=== PATIENT | female | born 1945 | race Caucasian/White ===

== ENCOUNTER 2021-09-08 00:36 | Inpatient (IN) | payer MEDICARE, MEDICAID ==
[2021-09-08 01:23] LABS: Hemoglobin 12.5 g/dL (12.0-16.0); Mean Corpuscular HGB CONC 34.6 g/dL (32.0-36.0); Mean Corpuscular Hemoglobin 35.3 pg (27.0-31.0); Mean Platelet Volume 7.2 fL (7.4-10.4); Platelet Count 365 thou/uL (130-400); RBC Distribution Width 13.2 % (11.5-14.5); Red Blood Cell (RBC) Count 3.55 mill/uL (4.20-5.40); White Blood Cell (WBC) Count 13.7 thou/uL (4.8-10.8)
[2021-09-08 01:34] LABS: #Basophils 0.1 thou/uL (0.0-0.2); #Eosinphils 0.8 thou/uL (0.0-0.7); #Lymphocytes 2.3 thou/uL (1.20-3.40); #Monocytes 0.8 thou/uL (0.11-0.59); #Neutrophils 9.8 thou/uL (1.40-6.50); %Basophils 0.5 % (0.0-1.0); %Lymphocytes 16.9 % (21.0-51.0); %Monocytes 5.5 % (0.0-10.0); %Neutrophils 71.1 % (42.0-75.0)
[2021-09-08 01:40] LABS: ALT (SGPT) 23 U/L (8-55); AST (SGOT) 38 U/L (5-34); Albumin 3.4 g/dL (3.4-4.8); Alkaline Phosphatase 114 U/L (40-110); Anion Gap 12 mmol/L (10-20); BUN (Urea Nitrogen) 19 mg/dL (9.8-20.1); Bilirubin, Total 0.6 mg/dL (0.2-1.2); Calc. Creatinine Clearance 0 mL/min (70-130); Calcium 8.4 mg/dL (7.8-10.44); Carbon Dioxide 27 mmol/L (23-31); Chloride 101 mmol/L (98-107); Globulin 4.1 g/dL (2.4-3.5); Glucose 142 mg/dL (83-110); Potassium 4.1 mmol/L (3.5-5.1); Protein, Total 7.5 g/dL (5.8-8.1); Sodium 136 mmol/L (136-145)
[2021-09-08] MEDS ORDERED: Morphine 2 MG/ML VIAL SLOW IVP PRN (02:08)
[2021-09-08] MEDS ORDERED: Promethazine HCl 25 MG/ML VIAL IM PRN (02:08)
[2021-09-08] MEDS ORDERED: hydrALAZINE 20 MG/ML VIAL SLOW IVP PRN (02:08)
[2021-09-08] MEDS ORDERED: Ondansetron PF 4 MG/2 ML Vial IVP PRN (02:08)
[2021-09-08] MEDS ORDERED: traMADol HCl 50 MG TAB PO PRN ×3 (02:08→03:26)
[2021-09-08] MEDS ORDERED: Acetaminophen 325 MG TAB PO PRN (02:08)
[2021-09-08] MEDS ORDERED: Cyclobenzaprine 10 MG TAB PO PRN (02:13)
[2021-09-08] MEDS ORDERED: Ibuprofen 600 MG TAB PO SCH (02:15)
[2021-09-08] MEDS ORDERED: Acetaminophen 325 MG TAB PO SCH (02:16)
[2021-09-08] MEDS ORDERED: Ondansetron PF 4 MG/2 ML Vial ONE ×2 (02:19→13:42)
[2021-09-08] MEDS ORDERED: Morphine 4 MG/ML VIAL ONE (02:19)
[2021-09-08] MEDS ORDERED: Morphine 4 MG/ML VIAL SLOW IVP PRN ×2 (02:37→13:25)
[2021-09-08 03:01] LABS: INR-International Normal Ratio 1.2; PTT 28.7 sec (22.9-36.1); Prothrombin Time 15.4 sec (12.0-14.7)
[2021-09-08 03:49] VITALS: BMI 30.5
[2021-09-08] MEDS: Sodium Chloride 0.9% 1,000 ML IV SCH ×3 (03:59→17:11)
[2021-09-08] MEDS ORDERED: traMADol HCl 50 MG TAB PO SCH (06:00)
[2021-09-08 06:02] LABS: SARS-CoV-2 NAA Rapid Test Not Detected (NotDetected)
[2021-09-08] MEDS ORDERED: CEFAZOLIN 2 GM, IV Admixture Fee-Chemo 1 UNITS in Sodium Chloride 0.9% 100 ML IVPB SCH (08:00)
[2021-09-08] MEDS: Famotidine 20 MG TAB PO SCH (08:13)
[2021-09-08] MEDS ORDERED: Acetaminophen 500 MG TAB PO SCH (09:00)
[2021-09-08] MEDS ORDERED: Dextrose 5% in Water 1,000 ML IV PRN (13:22)
[2021-09-08] MEDS ORDERED: Dextrose 50% Abboject 50 ML SYRINGE SLOW IVP PRN (13:22)
[2021-09-08] MEDS ORDERED: Polyethylene Glycol OPTH DROP 15 ML BOT EA EYE PRN (13:24)
[2021-09-08] MEDS ORDERED: Fentanyl 100 MCG/2 ML VIAL ONE (13:31)
[2021-09-08] MEDS ORDERED: Dexmedetomidine 200 MCG/2 ML VIAL ONE (13:34)
[2021-09-08] MEDS ORDERED: ceFAZolin (BATCH) 2 GM/100 ML BAG ONE (13:34)
[2021-09-08] MEDS ORDERED: PROPOFOL 200 MG/20 ML VIAL ONE (13:42)
[2021-09-08] MEDS ORDERED: Dexamethasone 20 MG/5 ML VIAL ONE (13:42)
[2021-09-08] MEDS ORDERED: Lidocaine 1% PF 5 ML VIAL ONE (13:42)
[2021-09-08] MEDS: Senokot S 8.6-50 MG TAB PO SCH ×2 (17:10→22:06)
[2021-09-08] MEDS: Polyethylene Glycol 3350 17 GM Packet PO SCH (17:10)
[2021-09-08] MEDS: Acetaminophen/Codeine 30-300mg Tablet PO SCH ×2 (17:11→22:06)
[2021-09-08 17:31] LABS: Bilirubin Negative (Negative); Blood, Urine Negative (Negative); Clarity Clear (Clear); Glucose, Urine (Dipstick) Normal (Negative); Ketone, Urine Negative (Negative); Leukocyte 25 Leu/uL (Negative); Nitrite Negative (Negative); Protein, Urine (Dipstick) 30 mg/dL (Neg-Trace); RBC/HPF 0-3 HPF (0-3); Specific Gravity, Urine 1.015 (1.002-1.036); Squamous Epithelial 0-3 HPF (0-3); pH, Urine 5.5 (5.0-9.0)
[2021-09-08 17:32] LABS: Bacteria/HPF 1+ HPF (None Seen)
[2021-09-08 17:33] LABS: Urine Culture Reflex Yes Yes
[2021-09-08] MEDS: Insulin Regular 300 UNITS/3 ML VIAL SC PRN (18:27)
[2021-09-08] MEDS: Insulin Glargine 30 UNITS/0.3 ML VIAL SC SCH (22:10)
[2021-09-08] MEDS: ceFAZolin (BATCH) 2 GM in Premix Bag 1 BAG IVPB SCH (22:11)
[2021-09-09] MEDS: Acetaminophen/Codeine 30-300mg Tablet PO SCH ×5 (03:23→21:08)
[2021-09-09] MEDS: Sodium Chloride 0.9% 1,000 ML IV SCH (03:26)
[2021-09-09] MEDS: Levothyroxine Sodium 75 MCG TAB PO SCH (05:23)
[2021-09-09 05:24] LABS: #Lymphocytes 1.2 thou/uL (1.20-3.40); #Monocytes 1.1 thou/uL (0.11-0.59); #Neutrophils 15.8 thou/uL (1.40-6.50); %Eosinophils 0.1 % (0.0-10.0); %Lymphocytes 6.4 % (21.0-51.0); %Monocytes 6.3 % (0.0-10.0); %Neutrophils 87.2 % (42.0-75.0); Hemoglobin 8.2 g/dL (12.0-16.0); Mean Corpuscular HGB CONC 31.9 g/dL (32.0-36.0); Mean Corpuscular Hemoglobin 32.6 pg (27.0-31.0); Mean Platelet Volume 7.1 fL (7.4-10.4); Platelet Count 383 thou/uL (130-400); RBC Distribution Width 12.9 % (11.5-14.5); Red Blood Cell (RBC) Count 2.52 mill/uL (4.20-5.40); White Blood Cell (WBC) Count 18.1 thou/uL (4.8-10.8)
[2021-09-09 05:36] LABS: Anion Gap 17 mmol/L (10-20); BUN (Urea Nitrogen) 21 mg/dL (9.8-20.1); Calc. Creatinine Clearance 41 mL/min (70-130); Calcium 7.8 mg/dL (7.8-10.44); Carbon Dioxide 22 mmol/L (23-31); Chloride 97 mmol/L (98-107); Glucose 276 mg/dL (83-110); Magnesium 1.6 mg/dL (1.6-2.6); Phosphorus 4.2 mg/dL (2.3-4.7); Potassium 4.5 mmol/L (3.5-5.1); Sodium 131 mmol/L (136-145)
[2021-09-09] MEDS: ceFAZolin (BATCH) 2 GM in Premix Bag 1 BAG IVPB SCH (06:18)
[2021-09-09] MEDS: Insulin Regular 300 UNITS/3 ML VIAL SC PRN ×3 (06:18→17:47)
[2021-09-09] MEDS: Famotidine 20 MG TAB PO SCH (08:11)
[2021-09-09] MEDS: Senokot S 8.6-50 MG TAB PO SCH ×2 (08:11→21:09)
[2021-09-09] MEDS: Polyethylene Glycol 3350 17 GM Packet PO SCH (08:12)
[2021-09-09] MEDS: Insulin Glargine 30 UNITS/0.3 ML VIAL SC SCH ×2 (08:12→21:09)
[2021-09-10] MEDS: Acetaminophen/Codeine 30-300mg Tablet PO SCH ×3 (02:09→14:15)
[2021-09-10] MEDS: Levothyroxine Sodium 75 MCG TAB PO SCH (06:06)
[2021-09-10 07:45] LABS: #Basophils 0.1 thou/uL (0.0-0.2); #Eosinphils 0.6 thou/uL (0.0-0.7); #Lymphocytes 2.3 thou/uL (1.20-3.40); #Monocytes 1.4 thou/uL (0.11-0.59); #Neutrophils 12.4 thou/uL (1.40-6.50); %Basophils 0.4 % (0.0-1.0); %Eosinophils 3.5 % (0.0-10.0); %Lymphocytes 13.6 % (21.0-51.0); %Monocytes 8.3 % (0.0-10.0); %Neutrophils 74.3 % (42.0-75.0); Hemoglobin 7.8 g/dL (12.0-16.0); Mean Corpuscular HGB CONC 32.4 g/dL (32.0-36.0); Mean Corpuscular Hemoglobin 32.7 pg (27.0-31.0); Mean Platelet Volume 6.7 fL (7.4-10.4); Platelet Count 368 thou/uL (130-400); Red Blood Cell (RBC) Count 2.37 mill/uL (4.20-5.40); White Blood Cell (WBC) Count 16.7 thou/uL (4.8-10.8)
[2021-09-10 08:59] LABS: Anion Gap 13 mmol/L (10-20); BUN (Urea Nitrogen) 23 mg/dL (9.8-20.1); Calc. Creatinine Clearance 44 mL/min (70-130); Calcium 8.1 mg/dL (7.8-10.44); Carbon Dioxide 27 mmol/L (23-31); Chloride 100 mmol/L (98-107); Glucose 91 mg/dL (83-110); Sodium 136 mmol/L (136-145)
[2021-09-10] MEDS: Senokot S 8.6-50 MG TAB PO SCH (09:08)
[2021-09-10] MEDS: Insulin Glargine 30 UNITS/0.3 ML VIAL SC SCH (09:09)
[2021-09-10] MEDS: Polyethylene Glycol 3350 17 GM Packet PO SCH (09:09)
[2021-09-10 11:51] VITALS: BP 152/77; TEMP 98.2
[2021-09-10] MEDS ORDERED: Ferrous Sulfate 325 MG TAB PO SCH (17:00)
[2021-09-11] MEDS ORDERED: Ascorbic Acid 500 mg Chewable Tablet PO SCH (09:00)
== END 2021-09-10 14:51 | DRG 482 ==
LOC: ERS 00:36 → SURG A 02:06
PROVIDERS: ADMIT Surgery; ATTEND Surgery
PROC: 0QHB36Z Insertion of Intramedullary Internal Fixation Device into Right Lower Femur, Percutaneous Approach (ICD-10-PCS; principal; 2021-09-08)
DX: S72.401A Unspecified fracture of lower end of right femur, initial encounter for closed fracture (principal); Z20.822 Contact with and (suspected) exposure to COVID-19; W18.11XA Fall from or off toilet without subsequent striking against object, initial encounter; J44.9 Chronic obstructive pulmonary disease, unspecified; I25.10 Atherosclerotic heart disease of native coronary artery without angina pectoris; I48.91 Unspecified atrial fibrillation; E11.9 Type 2 diabetes mellitus without complications; E03.9 Hypothyroidism, unspecified; E66.9 Obesity, unspecified; Z95.1 Presence of aortocoronary bypass graft; Z79.82 Long term (current) use of aspirin; Z79.01 Long term (current) use of anticoagulants; Z68.30 Body mass index [BMI] 30.0-30.9, adult; Z79.4 Long term (current) use of insulin; Z79.890 Hormone replacement therapy; Z79.899 Other long term (current) drug therapy
CPT/HCPCS: 36415; 36416; 71045; 76000; 80048; 80053; 81001; 83735; 84100; 85025; 85610; 85730; 86850; 86900; 86901; 87086; 93005; 94640; 96374; 96375; G0390; J0690; J1100; J1815; J2270; J2405; J2704; J3010; J7050; J7620; U0002

== ENCOUNTER 2021-09-26 16:29 | Inpatient (IN) | payer MEDICARE, MEDICAID ==
[2021-09-26 17:18] LABS: Hemoglobin 8.7 g/dL (12.0-16.0); Mean Corpuscular HGB CONC 32.9 g/dL (32.0-36.0); Mean Corpuscular Hemoglobin 32.1 pg (27.0-31.0); Mean Corpuscular Volume 97.8 fL (78.0-98.0); Mean Platelet Volume 6.7 fL (7.4-10.4); Platelet Count 677 thou/uL (130-400); RBC Distribution Width 14.2 % (11.5-14.5); White Blood Cell (WBC) Count 20.5 thou/uL (4.8-10.8)
[2021-09-26 17:32] LABS: Band 1 % (5-11); Eosinophils 2 % (0-10); Lymphocytes 5 % (21-51); MDiff Complete? YES; Monocytes 5 % (0-10); Neutrophil 87 % (42-75); Ovalocytes SLIGHT = 2-5 cells (100X) (0-1/hpf); Platelet Morphology Comment Appears Increased; Polychromasia MODERATE = 3-4 cells (100X) (0-2/hpf)
[2021-09-26 17:40] LABS: ALT (SGPT) 81 U/L (8-55); AST (SGOT) 241 U/L (5-34); Albumin 2.6 g/dL (3.4-4.8); Alkaline Phosphatase 164 U/L (40-110); Anion Gap 17 mmol/L (10-20); BUN (Urea Nitrogen) 76 mg/dL (9.8-20.1); Bilirubin, Total 2.7 mg/dL (0.2-1.2); Calc. Creatinine Clearance 0 mL/min (70-130); Calcium 7.9 mg/dL (7.8-10.44); Carbon Dioxide 24 mmol/L (23-31); Chloride 87 mmol/L (98-107); Globulin 3.7 g/dL (2.4-3.5); Glucose 165 mg/dL (83-110); Potassium 4.1 mmol/L (3.5-5.1); Protein, Total 6.3 g/dL (5.8-8.1); Sodium 124 mmol/L (136-145)
[2021-09-26] MEDS ORDERED: Pantoprazole 40 MG VIAL ONE (17:50)
[2021-09-26 18:06] LABS: INR-International Normal Ratio 1.2; Prothrombin Time 15.6 sec (12.0-14.7)
[2021-09-26] MEDS ORDERED: Dextrose 50% Abboject 50 ML SYRINGE SLOW IVP PRN (18:44)
[2021-09-26] MEDS ORDERED: Acetaminophen 325 MG TAB PO PRN (18:44)
[2021-09-26] MEDS ORDERED: Dextrose 5% in Water 1,000 ML IV PRN (18:44)
[2021-09-26] MEDS ORDERED: Sodium Chloride 0.9% 1,000 ML IV SCH (19:00)
[2021-09-26] MEDS ORDERED: Piperacillin/Tazobactam 3.375 GM in Sodium Chloride 0.9% 100 ML IVPB SCH ×2 (19:00→19:30)
[2021-09-26] MEDS ORDERED: Pantoprazole 80 MG in Sodium Chloride 0.9% 100 ML IVPB SCH (19:41)
[2021-09-26 20:39] LABS: Hemoglobin 8.7 g/dL (12.0-16.0); Mean Corpuscular HGB CONC 31.6 g/dL (32.0-36.0); Mean Corpuscular Hemoglobin 31.4 pg (27.0-31.0); Mean Corpuscular Volume 99.4 fL (78.0-98.0); Mean Platelet Volume 6.7 fL (7.4-10.4); Platelet Count 632 thou/uL (130-400); RBC Distribution Width 14.3 % (11.5-14.5); Red Blood Cell (RBC) Count 2.77 mill/uL (4.20-5.40); White Blood Cell (WBC) Count 24.1 thou/uL (4.8-10.8)
[2021-09-26] MEDS ORDERED: Pantoprazole 40 MG VIAL IVP SCH (21:00)
[2021-09-26] MEDS: HYDROcodone/Acetaminophen 5/325 mg Tablet PO PRN (21:24)
[2021-09-26] MEDS ORDERED: Nystatin Powder 15 GM BOT TOP PRN (22:13)
[2021-09-26] MEDS ORDERED: Cyclobenzaprine 10 MG TAB PO PRN (22:13)
[2021-09-26] MEDS: traZODone HCl 150 MG TAB PO SCH (22:56)
[2021-09-27] MEDS: Piperacillin/Tazobactam 3.375 GM in Sodium Chloride 0.9% 100 ML IVPB SCH ×2 (01:14→13:10)
[2021-09-27] MEDS: Sodium Chloride 0.9% 1,000 ML IV SCH ×2 (01:15→13:08)
[2021-09-27] MEDS: HYDROcodone/Acetaminophen 5/325 mg Tablet PO PRN ×3 (02:01→19:45)
[2021-09-27 02:03] LABS: Bacteria/HPF 2+ HPF (None Seen); Bilirubin Negative (Negative); Blood, Urine 1+ (Negative); Clarity Turbid (Clear); Glucose, Urine (Dipstick) Normal (Negative); Ketone, Urine Negative (Negative); Leukocyte 500 Leu/uL (Negative); Nitrite Negative (Negative); Protein, Urine (Dipstick) 20 mg/dL (Neg-Trace); Renal Epithelial 0-3 HPF (None Seen); Specific Gravity, Urine 1.013 (1.002-1.036); Squamous Epithelial None Seen HPF (0-3); Urobilinogen Normal mg/dL (Less than 2); WBC/HPF Greater than 50 HPF (0-3); pH, Urine 5.5 (5.0-9.0)
[2021-09-27 02:04] LABS: Urine Culture Reflex Yes Yes
[2021-09-27 04:51] LABS: Anion Gap 18 mmol/L (10-20); BUN (Urea Nitrogen) 75 mg/dL (9.8-20.1); Calc. Creatinine Clearance 22 mL/min (70-130); Calcium 7.3 mg/dL (7.8-10.44); Carbon Dioxide 20 mmol/L (23-31); Chloride 90 mmol/L (98-107); Glucose 167 mg/dL (83-110); Potassium 4.2 mmol/L (3.5-5.1); Sodium 124 mmol/L (136-145)
[2021-09-27 05:11] LABS: Lymphocytes 21 % (21-51); MDiff Complete? YES; Macrocytosis SLIGHT = 6-15 cells (100X) (0-5/hpf); Mean Corpuscular HGB CONC 32.1 g/dL (32.0-36.0); Mean Corpuscular Hemoglobin 32.3 pg (27.0-31.0); Mean Platelet Volume 6.9 fL (7.4-10.4); Monocytes 2 % (0-10); Neutrophil 77 % (42-75); Platelet Count 560 thou/uL (130-400); Platelet Morphology Comment Appears Increased; Red Blood Cell (RBC) Count 2.48 mill/uL (4.20-5.40); White Blood Cell (WBC) Count 20.9 thou/uL (4.8-10.8)
[2021-09-27 05:36] LABS: SARS-CoV-2 NAA Rapid Test Not Detected (NotDetected)
[2021-09-27] MEDS: Levothyroxine Sodium 75 MCG TAB PO SCH (06:14)
[2021-09-27] MEDS ORDERED: Ferrous Sulfate 325 MG TAB PO SCH (08:00)
[2021-09-27] MEDS ORDERED: Pantoprazole 80 MG, Admixture Fee 1 EACH in Sodium Chloride 0.9% 100 ML IVPB SCH (08:00)
[2021-09-27] MEDS ORDERED: PROPOFOL 200 MG/20 ML VIAL ONE (11:43)
[2021-09-27] MEDS ORDERED: Lidocaine 1% PF 5 ML VIAL ONE (11:43)
[2021-09-27 11:51] LABS: Creatinine, Urine 71.95 mg/dL (47-110); Protein, Urine Random Quant 30 mg/dL (1-14); Sodium, Urine Less than 20 mmol/L (Not Available); Urea Nitrogen, Random Urine 452 mg/dl
[2021-09-27] MEDS ORDERED: Ondansetron HCl/PF 4 MG/2 ML Vial IVP PRN (12:08)
[2021-09-27] MEDS ORDERED: Pharmacy to Dose ABXS IVPB PRN (12:37)
[2021-09-27] MEDS ORDERED: VANCOMYCIN 1.75 GM/500 ML BAG 1.75 GM in Premix Bag 1 BAG IVPB SCH (12:45)
[2021-09-27] MEDS ORDERED: Vancomycin HCl 1.75 GM in Sodium Chloride 0.9% 500 ML IVPB SCH (13:00)
[2021-09-27] MEDS: FLUoxetine HCl 20 MG CAP PO SCH (13:09)
[2021-09-27] MEDS: Atorvastatin Calcium 40 MG TAB PO SCH (13:09)
[2021-09-27] MEDS: Multivitamin W/ Minerals 1 TAB PO SCH (13:09)
[2021-09-27] MEDS: Amiodarone 200 MG TAB PO SCH (13:09)
[2021-09-27 14:04] LABS: Hemoglobin 7.3 g/dL (12.0-16.0); Mean Corpuscular HGB CONC 31.7 g/dL (32.0-36.0); Mean Corpuscular Hemoglobin 30.9 pg (27.0-31.0); Mean Corpuscular Volume 97.7 fL (78.0-98.0); Mean Platelet Volume 6.9 fL (7.4-10.4); Platelet Count 606 thou/uL (130-400); RBC Distribution Width 14.2 % (11.5-14.5); Red Blood Cell (RBC) Count 2.36 mill/uL (4.20-5.40)
[2021-09-27 14:30] LABS: Band 3 % (5-11); Burr Cells SLIGHT = 2-5 cells (100X) (0-1/hpf); Lymphocytes 8 % (21-51); MDiff Complete? YES; Monocytes 9 % (0-10); Myelocyte 1 % (0-0); Neutrophil 79 % (42-75); Ovalocytes SLIGHT = 2-5 cells (100X) (0-1/hpf); Platelet Morphology Comment Appears Increased; Polychromasia MODERATE = 3-4 cells (100X) (0-2/hpf); White Blood Cell (WBC) Count 28.2 thou/uL (4.8-10.8)
[2021-09-27] MEDS: Albumin 25% 25 GM/100 ML BOT IVPB SCH (18:06)
[2021-09-27] MEDS ORDERED: Vancomycin 1 GM, Admixture Fee 1 EACH in Premix Bag 1 BAG IVPB SCH (21:00)
[2021-09-27] MEDS: Sodium Bicarbonate Tab 325 MG TAB PO SCH (21:10)
[2021-09-27] MEDS: traZODone HCl 150 MG TAB PO SCH (22:20)
[2021-09-28] MEDS: Piperacillin/Tazobactam 3.375 GM in Sodium Chloride 0.9% 100 ML IVPB SCH (00:44)
[2021-09-28] MEDS: Sodium Chloride 0.9% 1,000 ML IV SCH ×3 (00:51→21:41)
[2021-09-28 01:33] LABS: Sodium, Urine Less than 20 mmol/L (Not Available)
[2021-09-28 05:09] LABS: Anion Gap 16 mmol/L (10-20); BUN (Urea Nitrogen) 71 mg/dL (9.8-20.1); Calc. Creatinine Clearance 23 mL/min (70-130); Carbon Dioxide 21 mmol/L (23-31); Chloride 92 mmol/L (98-107); Glucose 190 mg/dL (83-110); Potassium 3.9 mmol/L (3.5-5.1); Sodium 125 mmol/L (136-145)
[2021-09-28 05:10] LABS: Iron 23 ug/dL (50-170); Iron Binding Capacity, Total 158 mcg/dL (265-497)
[2021-09-28 05:21] LABS: Band 3 % (5-11); Burr Cells SLIGHT = 2-5 cells (100X) (0-1/hpf); Eosinophils 1 % (0-10); Hemoglobin 6.4 g/dL (12.0-16.0); Lymphocytes 5 % (21-51); MDiff Complete? YES; Macrocytosis MODERATE=16-30 cells (100X) (0-5/hpf); Mean Corpuscular HGB CONC 32.3 g/dL (32.0-36.0); Mean Corpuscular Hemoglobin 32.5 pg (27.0-31.0); Mean Platelet Volume 6.9 fL (7.4-10.4); Metamyelocyte 1 % (0-0); Monocytes 3 % (0-10); Neutrophil 87 % (42-75); Platelet Count 494 thou/uL (130-400); Platelet Morphology Comment Appears Increased; RBC Distribution Width 14.1 % (11.5-14.5); Red Blood Cell (RBC) Count 1.98 mill/uL (4.20-5.40); Toxic Granulation SLIGHT; White Blood Cell (WBC) Count 21.8 thou/uL (4.8-10.8)
[2021-09-28] MEDS: Albumin 25% 25 GM/100 ML BOT IVPB SCH ×3 (05:28→22:42)
[2021-09-28] MEDS: Levothyroxine Sodium 75 MCG TAB PO SCH (05:28)
[2021-09-28 05:29] LABS: Ferritin 1096.04 ng/mL (10-291)
[2021-09-28 05:30] LABS: Vitamin D, 25 Hydroxy 17.5 ng/ml (> 30.0)
[2021-09-28] MEDS ORDERED: Ergocalciferol 1.25 MG(50,000 UNITS) CAP PO SCH (09:00)
[2021-09-28] MEDS: Iron, Sodium Ferric Gluconate 250 MG in Sodium Chloride 0.9% 250 ML 250 ML IVPB SCH (09:28)
[2021-09-28] MEDS: Calcium Carbonate 600 MG TAB PO SCH ×2 (09:29→21:36)
[2021-09-28] MEDS: FLUoxetine HCl 20 MG CAP PO SCH (09:29)
[2021-09-28] MEDS: Sodium Bicarbonate Tab 325 MG TAB PO SCH ×3 (09:30→21:36)
[2021-09-28] MEDS: Multivitamin W/ Minerals 1 TAB PO SCH (09:30)
[2021-09-28] MEDS: Atorvastatin Calcium 40 MG TAB PO SCH (09:30)
[2021-09-28] MEDS: Amiodarone 200 MG TAB PO SCH (09:30)
[2021-09-28] MEDS: Pantoprazole 40 MG VIAL IVP SCH (09:31)
[2021-09-28] MEDS: HYDROcodone/Acetaminophen 5/325 mg Tablet PO PRN (09:33)
[2021-09-28] MEDS: HumaLOG 300 UNITS/3 ML VIAL SC PRN ×3 (12:44→22:50)
[2021-09-28] MEDS: traZODone HCl 150 MG TAB PO SCH (21:36)
[2021-09-28] MEDS: Cefepime 1 GM in Sodium Chloride 0.9% 100 ML IVPB SCH (21:39)
[2021-09-29] MEDS: Sodium Chloride 0.9% 1,000 ML IV SCH (03:49)
[2021-09-29] MEDS: HYDROcodone/Acetaminophen 5/325 mg Tablet PO PRN (04:00)
[2021-09-29 04:33] LABS: #Lymphocytes 1.1 thou/uL (1.20-3.40); #Monocytes 1.4 thou/uL (0.11-0.59); %Eosinophils 0.2 % (0.0-10.0); %Lymphocytes 5.6 % (21.0-51.0); %Monocytes 7.3 % (0.0-10.0); %Neutrophils 86.9 % (42.0-75.0); Hemoglobin 7.1 g/dL (12.0-16.0); Mean Corpuscular HGB CONC 31.7 g/dL (32.0-36.0); Mean Corpuscular Hemoglobin 31.7 pg (27.0-31.0); Mean Platelet Volume 7.1 fL (7.4-10.4); Platelet Count 387 thou/uL (130-400); RBC Distribution Width 16.2 % (11.5-14.5); Red Blood Cell (RBC) Count 2.23 mill/uL (4.20-5.40); White Blood Cell (WBC) Count 19.6 thou/uL (4.8-10.8)
[2021-09-29 04:43] LABS: Anion Gap 18 mmol/L (10-20); BUN (Urea Nitrogen) 73 mg/dL (9.8-20.1); CK (CPK) 775 U/L (29-168); Calc. Creatinine Clearance 23 mL/min (70-130); Calcium 7.2 mg/dL (7.8-10.44); Carbon Dioxide 19 mmol/L (23-31); Chloride 93 mmol/L (98-107); Glucose 163 mg/dL (83-110); Sodium 126 mmol/L (136-145)
[2021-09-29 05:40] LABS: ALT (SGPT) 44 U/L (8-55); AST (SGOT) 146 U/L (5-34); Albumin 3.2 g/dL (3.4-4.8); Alkaline Phosphatase 100 U/L (40-110); Bilirubin, Direct 2.2 mg/dL (0.1-0.3); Bilirubin, Total 3.1 mg/dL (0.2-1.2); Protein, Total 5.7 g/dL (5.8-8.1)
[2021-09-29] MEDS: Albumin 25% 25 GM/100 ML BOT IVPB SCH (05:45)
[2021-09-29] MEDS: Levothyroxine Sodium 75 MCG TAB PO SCH (05:45)
[2021-09-29] MEDS: HumaLOG 300 UNITS/3 ML VIAL SC PRN ×3 (05:46→22:50)
[2021-09-29] MEDS: Atorvastatin Calcium 40 MG TAB PO SCH (09:55)
[2021-09-29] MEDS: Sodium Bicarbonate 100 MEQ in Sodium Chloride 0.45% 1,000 ML IV SCH ×3 (09:55→22:51)
[2021-09-29] MEDS: Amiodarone 200 MG TAB PO SCH (09:55)
[2021-09-29] MEDS: Pantoprazole 40 MG VIAL IVP SCH (09:56)
[2021-09-29] MEDS: Multivitamin W/ Minerals 1 TAB PO SCH (09:56)
[2021-09-29] MEDS: FLUoxetine HCl 20 MG CAP PO SCH (09:56)
[2021-09-29] MEDS: Calcium Carbonate 600 MG TAB PO SCH ×2 (09:56→20:35)
[2021-09-29] MEDS: Sodium Bicarbonate Tab 325 MG TAB PO SCH ×3 (09:56→20:34)
[2021-09-29] MEDS: Iron, Sodium Ferric Gluconate 250 MG in Sodium Chloride 0.9% 250 ML 250 ML IVPB SCH (15:53)
[2021-09-29] MEDS: Cefepime 1 GM in Sodium Chloride 0.9% 100 ML IVPB SCH (20:34)
[2021-09-29] MEDS: traZODone HCl 50 MG TAB PO SCH (20:35)
[2021-09-30 04:45] LABS: Anion Gap 16 mmol/L (10-20); BUN (Urea Nitrogen) 68 mg/dL (9.8-20.1); Calc. Creatinine Clearance 21 mL/min (70-130); Calcium 6.9 mg/dL (7.8-10.44); Carbon Dioxide 22 mmol/L (23-31); Chloride 90 mmol/L (98-107); Glucose 189 mg/dL (83-110); Potassium 3.8 mmol/L (3.5-5.1); Sodium 124 mmol/L (136-145)
[2021-09-30 04:48] LABS: Band 1 % (5-11); Lymphocytes 5 % (21-51); MDiff Complete? YES; Mean Corpuscular HGB CONC 32.8 g/dL (32.0-36.0); Mean Corpuscular Hemoglobin 31.8 pg (27.0-31.0); Mean Corpuscular Volume 96.9 fL (78.0-98.0); Mean Platelet Volume 7.4 fL (7.4-10.4); Monocytes 4 % (0-10); Neutrophil 90 % (42-75); Platelet Count 413 thou/uL (130-400); Platelet Morphology Comment Appears Increased; RBC Distribution Width 16.1 % (11.5-14.5); RBC Morphology Normal; Red Blood Cell (RBC) Count 2.19 mill/uL (4.20-5.40); White Blood Cell (WBC) Count 23.3 thou/uL (4.8-10.8)
[2021-09-30] MEDS: Levothyroxine Sodium 75 MCG TAB PO SCH (05:53)
[2021-09-30] MEDS: HumaLOG 300 UNITS/3 ML VIAL SC PRN (06:07)
[2021-09-30 08:49] LABS: Vancomycin, Random 12.5 ug/mL (See Comment)
[2021-09-30] MEDS: HYDROcodone/Acetaminophen 5/325 mg Tablet PO PRN ×2 (09:39→16:50)
[2021-09-30] MEDS: Atorvastatin Calcium 40 MG TAB PO SCH (09:39)
[2021-09-30] MEDS: Calcium Carbonate 600 MG TAB PO SCH ×2 (09:39→20:30)
[2021-09-30] MEDS: Sodium Bicarbonate Tab 325 MG TAB PO SCH ×3 (09:39→20:30)
[2021-09-30] MEDS: Amiodarone 200 MG TAB PO SCH (09:39)
[2021-09-30] MEDS: Iron, Sodium Ferric Gluconate 250 MG in Sodium Chloride 0.9% 250 ML 250 ML IVPB SCH (09:40)
[2021-09-30] MEDS: Multivitamin W/ Minerals 1 TAB PO SCH (09:40)
[2021-09-30] MEDS ORDERED: Bisacodyl 10 MG SUPP PR PRN (11:10)
[2021-09-30] MEDS ORDERED: Polyethylene Glycol 3350 17 GM Packet PO SCH (11:15)
[2021-09-30] MEDS: Azithromycin 500 MG in Sodium Chloride 0.9% 250 ML 250 ML IVPB SCH (15:12)
[2021-09-30] MEDS ORDERED: Furosemide 40 MG/4 ML VIAL SLOW IVP SCH (17:00)
[2021-09-30 17:12] LABS: Legionella Urinary Ag Negative (Negative)
[2021-09-30 17:13] LABS: Strep pneumo Urine Ag NEGATIVE (NEGATIVE)
[2021-09-30] MEDS: traZODone HCl 50 MG TAB PO SCH (20:30)
[2021-09-30] MEDS: Cefepime 1 GM in Sodium Chloride 0.9% 100 ML IVPB SCH (20:31)
[2021-09-30] MEDS: Vancomycin 1 GM in Premix Bag 1 BAG IVPB SCH (21:19)
[2021-10-01 04:41] LABS: Anion Gap 18 mmol/L (10-20); BUN (Urea Nitrogen) 69 mg/dL (9.8-20.1); CK (CPK) 1017 U/L (29-168); Calc. Creatinine Clearance 19 mL/min (70-130); Calcium 7.2 mg/dL (7.8-10.44); Carbon Dioxide 22 mmol/L (23-31); Chloride 88 mmol/L (98-107); Glucose 221 mg/dL (83-110); Potassium 4.2 mmol/L (3.5-5.1); Sodium 124 mmol/L (136-145)
[2021-10-01 05:14] LABS: Band 4 % (5-11); Hemoglobin 9.8 g/dL (12.0-16.0); Lymphocytes 2 % (21-51); MDiff Complete? YES; Mean Corpuscular HGB CONC 32.5 g/dL (32.0-36.0); Mean Corpuscular Hemoglobin 30.8 pg (27.0-31.0); Mean Corpuscular Volume 94.8 fL (78.0-98.0); Mean Platelet Volume 7.3 fL (7.4-10.4); Neutrophil 93 % (42-75); Platelet Count 409 thou/uL (130-400); RBC Distribution Width 16.6 % (11.5-14.5); Red Blood Cell (RBC) Count 3.18 mill/uL (4.20-5.40); White Blood Cell (WBC) Count 32.9 thou/uL (4.8-10.8)
[2021-10-01] MEDS: Levothyroxine Sodium 75 MCG TAB PO SCH (06:15)
[2021-10-01] MEDS ORDERED: Sodium Chloride 0.9% 1,000 ML IV SCH (07:15)
[2021-10-01 08:08] VITALS: BP 126/59
[2021-10-01] MEDS ORDERED: Polyethylene Glycol 3350 17 GM Packet PO SCH (09:00)
[2021-10-01] MEDS: Atorvastatin Calcium 40 MG TAB PO SCH (09:12)
[2021-10-01] MEDS: Calcium Carbonate 600 MG TAB PO SCH ×2 (09:12→22:29)
[2021-10-01] MEDS: Multivitamin W/ Minerals 1 TAB PO SCH (09:12)
[2021-10-01] MEDS: Amiodarone 200 MG TAB PO SCH (09:12)
[2021-10-01] MEDS: Sodium Bicarbonate Tab 325 MG TAB PO SCH ×3 (09:13→20:58)
[2021-10-01] MEDS: Polyethylene Glycol 3350 17 GM Packet PO SCH (09:13)
[2021-10-01] MEDS: Vancomycin 1 GM in Premix Bag 1 BAG IVPB SCH (10:19)
[2021-10-01] MEDS ORDERED: Furosemide 100 MG/10 ML VIAL SLOW IVP SCH (12:15)
[2021-10-01] MEDS: Iron, Sodium Ferric Gluconate 250 MG in Sodium Chloride 0.9% 250 ML 250 ML IVPB SCH (12:49)
[2021-10-01 14:27] VITALS: BMI 38.2
[2021-10-01] MEDS ORDERED: Vancomycin 1 GM in Premix Bag 1 BAG IVPB SCH (14:30)
[2021-10-01] MEDS: Azithromycin 500 MG in Sodium Chloride 0.9% 250 ML 250 ML IVPB SCH (16:07)
[2021-10-01 17:23] LABS: Creatinine, Urine 100.43 mg/dL (47-110)
[2021-10-01] MEDS: HYDROcodone/Acetaminophen 5/325 mg Tablet PO PRN (19:35)
[2021-10-01 20:54] LABS: Vancomycin, Trough 27.2 ug/mL
[2021-10-01 20:56] LABS: Albumin 2.6 g/dL (3.4-4.8); Anion Gap 17 mmol/L (10-20); BUN (Urea Nitrogen) 68 mg/dL (9.8-20.1); BUN/Creatinine Ratio 18.78; CK (CPK) 899 U/L (29-168); Calc. Creatinine Clearance 21 mL/min (70-130); Calcium 7.5 mg/dL (7.8-10.44); Carbon Dioxide 20 mmol/L (23-31); Chloride 88 mmol/L (98-107); Glucose 249 mg/dL (83-110); Phosphorus 4.5 mg/dL (2.3-4.7); Potassium 4.2 mmol/L (3.5-5.1); Sodium 121 mmol/L (136-145)
[2021-10-01] MEDS: Cefepime 1 GM in Sodium Chloride 0.9% 100 ML IVPB SCH (20:58)
[2021-10-01] MEDS: traZODone HCl 50 MG TAB PO SCH (20:59)
[2021-10-01] MEDS ORDERED: Sodium Chloride 3% 200 ML IVPB SCH (22:15)
[2021-10-02 04:18] LABS: Hemoglobin 9.6 g/dL (12.0-16.0); Mean Corpuscular Hemoglobin 30.9 pg (27.0-31.0); Mean Corpuscular Volume 96.5 fL (78.0-98.0); Mean Platelet Volume 7.4 fL (7.4-10.4); Platelet Count 387 thou/uL (130-400); RBC Distribution Width 16.8 % (11.5-14.5); Red Blood Cell (RBC) Count 3.09 mill/uL (4.20-5.40); White Blood Cell (WBC) Count 34.1 thou/uL (4.8-10.8)
[2021-10-02 04:30] LABS: Anion Gap 15 mmol/L (10-20); BUN (Urea Nitrogen) 68 mg/dL (9.8-20.1); CK (CPK) 756 U/L (29-168); Calc. Creatinine Clearance 20 mL/min (70-130); Calcium 7.5 mg/dL (7.8-10.44); Carbon Dioxide 22 mmol/L (23-31); Chloride 88 mmol/L (98-107); Glucose 265 mg/dL (83-110); Potassium 4.1 mmol/L (3.5-5.1); Sodium 121 mmol/L (136-145)
[2021-10-02 04:43] LABS: MDiff Complete? YES; Neutrophil 92 % (42-75)
[2021-10-02 04:44] LABS: Band 5 % (5-11); Lymphocytes 1 % (21-51); Monocytes 2 % (0-10)
[2021-10-02] MEDS: HumaLOG 300 UNITS/3 ML VIAL SC PRN ×2 (05:48→10:42)
[2021-10-02] MEDS ORDERED: Metolazone 5 MG TAB PO SCH (08:00)
[2021-10-02] MEDS ORDERED: Albumin 25% 25 GM/100 ML BOT IVPB SCH (08:15)
[2021-10-02] MEDS: Polyethylene Glycol 3350 17 GM Packet PO SCH (09:53)
[2021-10-02] MEDS ORDERED: Morphine 4 MG/ML VIAL SLOW IVP PRN (10:14)
[2021-10-02] MEDS: Amiodarone 200 MG TAB PO SCH (10:40)
[2021-10-02] MEDS: Levothyroxine Sodium 75 MCG TAB PO SCH (10:40)
[2021-10-02] MEDS: Calcium Carbonate 600 MG TAB PO SCH (10:40)
[2021-10-02] MEDS: Atorvastatin Calcium 40 MG TAB PO SCH (10:40)
[2021-10-02] MEDS: Multivitamin W/ Minerals 1 TAB PO SCH (10:41)
[2021-10-02] MEDS: Sodium Bicarbonate Tab 325 MG TAB PO SCH (10:41)
[2021-10-02 10:42] LABS: Vancomycin, Random 24.9 ug/mL (See Comment)
[2021-10-02 10:49] VITALS: TEMP 96.6
[2021-10-02] MEDS ORDERED: Furosemide 100 MG/10 ML VIAL SLOW IVP SCH (14:00)
== END 2021-10-02 12:36 | disposition expired | DRG 377 ==
LOC: ERS 16:29 → 2NO 18:16 → IMCU/EMU 10-01 08:53
PROVIDERS: ADMIT Internal Medicine; ATTEND Internal Medicine
PROC: 0DJ08ZZ Inspection of Upper Intestinal Tract, Via Natural or Artificial Opening Endoscopic (ICD-10-PCS; principal; 2021-09-27)
PROC: 3E03329 Introduction of Other Anti-infective into Peripheral Vein, Percutaneous Approach (ICD-10-PCS; 2021-09-27)
PROC: 30233N1 Transfusion of Nonautologous Red Blood Cells into Peripheral Vein, Percutaneous Approach (ICD-10-PCS; 2021-09-28)
PROC: 5A09357 Assistance with Respiratory Ventilation, Less than 24 Consecutive Hours, Continuous Positive Airway Pressure (ICD-10-PCS; 2021-10-02)
DX: K29.71 Gastritis, unspecified, with bleeding (principal); A41.4 Sepsis due to anaerobes; J96.01 Acute respiratory failure with hypoxia; J18.9 Pneumonia, unspecified organism; J69.0 Pneumonitis due to inhalation of food and vomit; N17.9 Acute kidney failure, unspecified; N39.0 Urinary tract infection, site not specified; E87.2 Acidosis; M62.82 Rhabdomyolysis; D62 Acute posthemorrhagic anemia; E22.2 Syndrome of inappropriate secretion of antidiuretic hormone; J44.0 Chronic obstructive pulmonary disease with (acute) lower respiratory infection; J81.1 Chronic pulmonary edema; Z66 Do not resuscitate; Z20.822 Contact with and (suspected) exposure to COVID-19; Z51.5 Encounter for palliative care; M96.840 Postprocedural hematoma of a musculoskeletal structure following a musculoskeletal system procedure; E03.9 Hypothyroidism, unspecified; E78.5 Hyperlipidemia, unspecified; E11.51 Type 2 diabetes mellitus with diabetic peripheral angiopathy without gangrene; D50.9 Iron deficiency anemia, unspecified; N18.9 Chronic kidney disease, unspecified; E11.22 Type 2 diabetes mellitus with diabetic chronic kidney disease; I12.9 Hypertensive chronic kidney disease with stage 1 through stage 4 chronic kidney disease, or unspecified chronic kidney disease; D69.6 Thrombocytopenia, unspecified; E86.9 Volume depletion, unspecified; E86.1 Hypovolemia; E88.09 Other disorders of plasma-protein metabolism, not elsewhere classified; E55.9 Vitamin D deficiency, unspecified; R74.8 Abnormal levels of other serum enzymes; D63.1 Anemia in chronic kidney disease; D21.9 Benign neoplasm of connective and other soft tissue, unspecified; I25.10 Atherosclerotic heart disease of native coronary artery without angina pectoris; M79.81 Nontraumatic hematoma of soft tissue; Y83.8 Other surgical procedures as the cause of abnormal reaction of the patient, or of later complication, without mention of misadventure at the time of the procedure; I08.3 Combined rheumatic disorders of mitral, aortic and tricuspid valves; K59.00 Constipation, unspecified; Z28.01 Immunization not carried out because of acute illness of patient; Z80.51 Family history of malignant neoplasm of kidney; Z79.899 Other long term (current) drug therapy; Z79.4 Long term (current) use of insulin; Z79.890 Hormone replacement therapy; Z79.82 Long term (current) use of aspirin; Z79.02 Long term (current) use of antithrombotics/antiplatelets; Z80.0 Family history of malignant neoplasm of digestive organs; Z95.1 Presence of aortocoronary bypass graft; Z98.890 Other specified postprocedural states; Z80.8 Family history of malignant neoplasm of other organs or systems
CPT/HCPCS: 36415; 36416; 36430; 71045; 74176; 76770; 80048; 80053; 80076; 80202; 81001; 82040; 82306; 82436; 82550; 82570; 82728; 83540; 83550; 83880; 83930; 83935; 84133; 84156; 84300; 84540; 85025; 85060; 85610; 85730; 86140; 86850; 86900; 86901; 87077; 87081; 87086; 87186; 87449; 87633; 87899; 93005; 93306; 93970; 94660; 96374; C9113; J0456; J0692; J1815; J1940; J2270; J2543; J2704; J2916; J3370; J3490; J7030; J7050; J7131; P9016; P9047; U0002; U0003; U0005